=== PATIENT | male | born 1955 | race Caucasian/White ===

== ENCOUNTER 2023-10-11 08:32 | Outpatient (CLI) | payer MEDICARE, OTHER, SELFPAY ==
--- NOTE | 2023-10-11 09:00 | CRLHL7_ITS ---
For Patients: As a result of the 21st Century Cures Act, medical imaging exams and procedure reports are released immediately into your electronic medical record. You may view this report before your referring provider. If you have questions, please contact your health care provider. INDICATION: Pulmonary nodule. Follow up. TECHNIQUE: Volumetric helical scanning of the thorax was performed without IV contrast material. Coronal and sagittal reconstructions were obtained. COMPARISON: Chest/abdomen/pelvis CT of 07/10/2023 FINDINGS: On image 13 series 3, of the 9 x 6 mm nodular density is demonstrated in the right apex and is unchanged. An unchanged noncalcified 5 mm right apical nodule on image 14 is also noted. No new nodule is identified. A few tiny calcified granulomas are again demonstrated. Emphysema is again demonstrated. No acute infiltrate, airway abnormality or pleural effusion is demonstrated. There is no mediastinal or hilar lymphadenopathy. The heart size is normal. Calcified coronary arterial plaque is again demonstrated. Images of the upper abdomen are unremarkable. IMPRESSION: 1. 9 x 6 mm nodular density and noncalcified 5 mm in the right upper lobe apex, unchanged for 3 months. No new nodule evident. A six-month follow up exam is suggested. 2. Emphysema. 3. Coronary artery disease. [employer] SOCIETY GUIDELINES: LOW RISK: - nodule less than 6 mm: No follow-up needed. - nodule 6-8 mm: Initial follow-up CT at 6-12 months and then at 18-24 months if no change. - nodule greater than 8 mm: Follow-up CTs at around 3, 9, and 24 months. Dynamic contrast-enhanced CT, PET, and/or biopsy. MULTIPLE LOW RISK: - nodule less than 6 mm: No follow-up needed. - nodule 6-8 mm: CT at 3-6 months, then consider CT at 18-24 months. - nodule greater than 8 mm: CT at 3-6 months, then consider CT at 18-24 months. HIGH RISK: - nodule less than 6 mm: Follow-up at 12 months. If no change, no further imaging needed. - nodule 6-8 mm: Initial follow-up CT at 3-6 months and then at 9-12 and 24 months if no change. - nodule greater than 8 mm: Follow-up CTs at around 3, 9, and 24 months. Dynamic contrast-enhanced CT, PET, and/or biopsy. MULTIPLE HIGH RISK: - nodule less than 6 mm: Optional CT at 12 months. - nodule 6-8 mm: CT at 3-6 months, then at 18-24 months. - nodule greater than 8 mm: CT at 3-6 months, then at 18-24 months. HIGH RISK is defined as one or more of the following: - at least 20 pack-year smoking history or equivalent second-hand exposure. - personal history of cancer or family history of lung cancer. - occupational exposure (asbestos, beryllium, silica, uranium, radon) - chronic interstitial/fibrotic lung disease. Please note that all CT scans at this facility use dose modulation, iterative reconstruction, and/or weight-based dosing when appropriate to reduce radiation dose to as low as reasonably achievable. Dictated by Kiet Carcamo MD @ 10/14/2023 10:10:43 AM (Electronically Signed)
== END 2023-10-11 08:33 | disposition home or self-care (01) ==
LOC: CT 08:35
PROVIDERS: PCP Physician Assistant; Visit Provider Internal Medicine Pulmonary Disease
DX: R91.1 Solitary pulmonary nodule (principal); R91.8 Other nonspecific abnormal finding of lung field; Z87.891 Personal history of nicotine dependence
CPT/HCPCS: 71250

== ENCOUNTER 2023-12-23 06:56 | Outpatient (CLI) | payer MEDICARE, SELFPAY ==
--- NOTE | 2023-12-23 08:31 | W.ANESCHARGE ---
Anesthesia Charges Start Date/Time Anesthesia Start Date: 12/23/23 Anesthesia Start Time: 07:53 Stop Date/Time Anesthesia Stop Date: 12/23/23 Anesthesia Stop Time: 08:25
--- NOTE | 2023-12-23 08:35 | W.ANESCHARGE ---
Anesthesia Charges Start Date/Time Anesthesia Start Date: 12/23/23 Anesthesia Start Time: 07:53 Stop Date/Time Anesthesia Stop Date: 12/23/23 Anesthesia Stop Time: 08:25
== END 2023-12-23 06:57 | disposition home or self-care (01) ==
LOC: OP CLINIC 06:57
PROVIDERS: PCP Physician Assistant; Visit Provider Internal Medicine Gastroenterology
DX: K63.5 Polyp of colon (principal); K57.30 Diverticulosis of large intestine without perforation or abscess without bleeding; Z86.010 Personal history of colon polyps
CPT/HCPCS: 00811; 45380; 88305; J2704

== ENCOUNTER 2024-04-15 07:44 | Outpatient (CLI) | payer MEDICARE, OTHER, SELFPAY ==
--- NOTE | 2024-04-15 08:00 | CRLHL7_ITS ---
For Patients: As a result of the Century Cures Act, medical imaging exams and procedure reports are released immediately into your electronic medical record. You may view this report before your referring provider. If you have questions, please contact your health care provider. Indication: F/U PULMONARY NODULE Technique: Noncontrast CT chest Please note that all CT scans at this facility use dose modulation, iterative reconstruction, and/or weight-based dosing when appropriate to reduce radiation dose to as low as reasonably achievable. Comparison: 10/11/2023 Findings: Stable 9 millimeter nodule within the right lung apex. Unchanged adjacent right apical pleural-parenchymal scarring. Left apical pleural parenchymal scarring also noted. Development of numerous additional nodules in both upper lobes within the subpleural lung, joyfu-muxqnlg-ndxw-left, measuring 5 millimeters or less. COPD/emphysema. No effusion or infiltrate. No edema or pneumothorax. Stable subcentimeter intrathoracic lymph nodes. Vascular calcifications. Asymmetric left gynecomastia. Visualized upper abdomen unremarkable. Stable bone island within the upper thoracic spine. Impression: Stable 9 millimeter right upper lobe nodule in the right lung apex. Stable 5 millimeter nodule right upper lobe. Additional new bilateral upper lobe nodules measuring 5 millimeters or less. Continued follow-up CT chest in 6 months recommended. Please note that all CT scans at this facility use dose modulation, iterative reconstruction, and/or weight-based dosing when appropriate to reduce radiation dose to as low as reasonably achievable. Dictated by Cliff Tai MD @ 04/16/2024 9:41:28 AM (Electronically Signed)
== END 2024-04-15 07:45 | disposition home or self-care (01) ==
LOC: CT 07:45
PROVIDERS: PCP Physician Assistant; Visit Provider Internal Medicine Pulmonary Disease
DX: R91.1 Solitary pulmonary nodule (principal); R91.8 Other nonspecific abnormal finding of lung field
CPT/HCPCS: 71250

== ENCOUNTER 2024-10-30 04:23 | Outpatient (CLI) | payer MEDICARE, SELFPAY | END 2024-10-30 04:24 | disposition home or self-care (01) | LOC: AMB 11-11 09:10 | PROVIDERS: PCP Physician Assistant; Visit Provider Emergency Medicine Emergency Medical Services | DX: R06.09 Other forms of dyspnea (principal) | CPT/HCPCS: A0998 ==

== ENCOUNTER 2025-09-21 10:38 | Emergency (ER) | payer MEDICARE, OTHER, SELFPAY ==
--- OUTSIDE RECORDS SUMMARY | 2025-09-21 10:58 | XMS_ITS | Clinical Summary ---
Author Organization [facility] Address [address] [place] [id number] Care Team Providers Care It Auditor Name Role Phone Tim Brown MD Primary Care Provider [phone] Allergies Active AllergyReactionsCriticalityNoted DateCommentsPenicillinsShortness Of CgszqpFyfq18/05/2018 Hives Medications MedicationSigDispense QuantityRefillsLast FilledStart DateEnd DateStatus order for DME Indications:Status post revision of total replacement of right kneeEquipment being ordered: Walker Wheels ([id number]) and Walker ([id number]) Treatment Diagnosis: Impaired gait. 1 each 06/06/2018Active oxyCODONE IR (ROXICODONE) 5 MG tablet Indications:Status post revision of total replacement of right kneeTake 1 tablet (5 mg) by mouth every 4 hours as needed for moderate to severe pain 80 tablet 06/07/2018Active acetaminophen (TYLENOL) 325 MG tablet Indications:Status post revision of total replacement of right kneeTake 3 tablets (975 mg) by mouth 3 times daily 100 tablet 06/07/2018Active hydrOXYzine (ATARAX) 25 MG tablet Indications:Status post revision of total replacement of right kneeTake 1 tablet (25 mg) by mouth every 6 hours as needed for itching 40 tablet 06/07/2018Active rivaroxaban ANTICOAGULANT (XARELTO) 10 MG TABS tablet Indications:Status post revision of total replacement of right kneeTake 1 tablet (10 mg) by mouth daily 14 tablet 06/08/2018Active senna-docusate (SENOKOT-S;PERICOLACE) 8.6-50 MG per tablet Indications:Status post revision of total replacement of right kneeTake 1 tablet by mouth 2 times daily 50 tablet 06/07/2018Active Active Problems ProblemNoted DateDiagnosed DateFailed total right knee oqirzyuaoyq65/06/2018 Total knee replacement pzqmxd4307/23/2008Knee pain07/23/2008 Social History Tobacco UseTypesPacks/DayYears UsedDateSmoking Tobacco: Every TotMtgofccaec781 Smokeless Tobacco: NeverAlcohol UseStandard Drinks/WeekCommentsYes0 (1 standard drink = 0.6 oz pure alcohol)rareSex and Gender InformationValueDate RecordedSex Assigned at BirthNot on fileLegal HmoKtzk23/04/2012 3:18 AM CSTGender Identity Not on fileSexual OrientationNot on file Last Filed Vital Signs Vital SignReadingTime TakenCommentsBlood Aqptgcik947/8509 10:04 AM CDT Pbzib961206/07/2018 7:46 PM YEPJoqauvcobqd95.8 ??C (98.3 ??F)06/08/2018 10:04 AM CDTRespiratory Fkbj400606/08/2018 10:04 AM CDTOxygen Lnxcynlefv61%06/08/2018 10:04 AM CDTInhaled Oxygen Concentration--Tmcbfg14.7 kg (208 lb 11.2 oz)06/07/2018 6:13 AM YSPQulyco548.4 cm (6' 1)06/05/2018 10:50 AM CDTBody Mass Index27.53 06/05/2018 10:50 AM CDT Plan of Treatment Not on file Medical Devices ImplantedTypeAreaManufacturerDevice IdentifierShelf Expiration DateModel / Serial / LotGraft Bone Putty Dbx 01ml [id number] Implanted:Qty: 1 [facility] 06/05/2018 [facility]issue/BiologicRight: KneeMUSCULOSKELETAL TRAN08/18/2019 [id number] / [id number] / Bone Cement Radiopaque Simplex Hv Full Dose [id number] Implanted:Qty: 1 on 06/05/2018 [facility] CenterCement, BoneRight: KneeSTRYKER QOVRQOMIYPH53/31/[id number] / / [id number] Tibial Insert Rotating Platform Tc3 Size 4 22.5mm Implanted:Qty: 1 on 06/05/2018 [facility]: WtkdFqmco85/30/[id number] / / [id number].B.T. Revision Tibial Tray Rotating Platform Sz 4 Implanted:Qty: 1 on 06/05/2018 [facility]: WldpIhnwi03/31/[id number] / / [id number].B.T. Revision Metaphyseal Sleeve 45mm Implanted:Qty: 1 on 06/05/2018 [facility]: EbupHzpja08/31/[id number] / / [id number] Stem Fluted 75mm X 18mm (Tibia) Implanted:Qty: 1 on 06/05/2018 [facility]: ZukmMnphj67/30/[id number] / / [id number] Femoral Tc3 Cemented Size 4 Right Implanted:Qty: 1 on 06/05/2018 [facility]: PaniDhajw98/31/[id number] / / [id number].F.C. Sigma Femoral Adaptor 5 Degree Implanted:Qty: 1 on 06/05/2018 by [facility]: IgjwFzqrl10/31/[id number] / / [id number].F.C. Sigma Femoral Adapter Marcy Neutral Implanted:Qty: 1 on 06/05/2018 by [facility]: GxklIsweg15/30/[id number] / / [id number] Femoral Sleeve 40mm Implanted:Qty: 1 on 06/05/2018 by [facility]: MrzmEfljv87/31/[id number] / / [id number] Stem Fluted 75mm X 20mm (Femoral) Implanted:Qty: 1 on 06/05/2018 [facility]: VfitPrxcg58/31/[id number] / / [id number]cybli IdentifierShelf Expiration DateModel / Serial / LotTotal Knee Explants (Femoral Component, Tibial Component, Tibial Insert) Explanted:Qty: 3 on 06/05/2018 by [facility] CenterRight: Knee Insurance * Guarantor: Eric Gaona Jr.Account TypeRelation to PatientDate of BirthPhoneBilling AddressPersonal/JfteglVaop1955 [address] [place] [address] * Guarantor: [id number] ENGINEERSAccount TypeRelation to PatientDate of BirthPhoneBilling AddressWorker's PjadcugrnbyeEmxjwzjz[address] [place] [address] Advance Directives For more information, please contact: [phone] * Full Code (Latest Code Status on File) Date ActivatedDate InactivatedComments06/07/2018 11:07 AM * Full Code Date ActivatedDate InactivatedComments06/05/2018 7:24 PM06/07/2018 11:07 AM Care Teams Team MemberRelationshipSpecialtyStart DateEnd Date Tim Brown MD PCP - GeneralFamily Practice06/05/18
--- OUTSIDE RECORDS SUMMARY | 2025-09-21 10:58 | XMS_ITS | Clinical Summary ---
Author Organization [facility] Address [facility] [place] [address] Care Team Providers Care Payroll Accounting Clerk Name Role Phone Rubina Laughlin Primary Care Provider [phone] Allergies Active AllergyReactionsCriticalityNoted RevtXvkvlwhuXwlxxosdtueBtkbd11/20/2010 Short of breath Medications MedicationSigDispense QuantityRefillsLast FilledStart DateEnd DateStatus metoprolol tartrate (LOPRESSOR) 25 mg tablet Indications:Atrial flutter, unspecified type (HC)Take 0.5 Tablets (12.5 mg) by mouth each time if needed (palpitations, fast HR). Please call [phone] 2 months in advance to schedule an office visit due in Aug 2024 45 Tablet 5Active aspirin chewable 81 mg chewable tablet Chew 81 mg by mouth once daily with a meal.Active fluticasone (50 mcg per actuation) nasal solution (FLONASE) Inhale 1 [place] into affected nostril(s) once daily if needed for Rhinitis.Active clopidogreL 75 mg tablet Indications:Cardiovascular symptomsTake 1 Tablet (75 mg) by mouth once daily. 90 Tablet 5Active rosuvastatin (Crestor) 20 mg tablet Indications:Mixed hyperlipidemiaTake 1 Tablet (20 mg) by mouth once daily. 90 Tablet 5Active escitalopram oxalate (Lexapro) 10 mg tablet Indications:LINDA (generalized anxiety disorder)Take 1 Tablet (10 mg) by mouth once daily. 90 Tablet 5Active LORazepam (ATIVAN) 0.5 mg tab Indications:Panic disorder,Adjustment disorder with anxious moodTAKE 1 TABLET (0.5 MG) BY MOUTH EVERY 6 HOURS IF NEEDED FOR ANXIETY. 20 Tablet 5Active tiotropium-olodateroL (STIOLTO RESPIMAT) 2.5-2.5 mcg/actuation inhaler Indications:COPD mixed type (HC)Inhale 2 Puffs by mouth once daily. 12 g 5Active albuterol HFA (PRO-AIR; VENTOLIN; PROVENTIL) 90 mcg/actuation inhaler Indications:Centrilobular emphysema (HC)Inhale 2 Puffs by mouth every 4 hours if needed for Shortness Of Breath or Wheezing. 8.5 g 1115Active fluticasone propion-salmeteroL 250-50 mcg/Dose diskus inhaler Indications:COPD mixed type (HC)Inhale 1 Puff by mouth two times daily. 60 Each Discontinued(*Med complete/Regimen complete/Level of care change) albuterol HFA 90 mcg/actuation inhaler Indications:Centrilobular emphysema (HC)Inhale 2 Puffs by mouth every 4 hours if needed for Shortness Of Breath or Wheezing. 8.5 g Discontinued(Reorder (E-cancel not sent)) azithromycin 250 mg tablet Indications:COPD exacerbation (HC)Take 500 mg (2 tabs) by mouth on day 1, then 250 mg (1 tab) daily for days 2-5. 6 Tablet Discontinued(*Med complete/Regimen complete/Level of care change) predniSONE (DELTASONE) 20 mg tablet Indications:COPD exacerbation (HC)Take 2 Tablets (40 mg) by mouth once daily with a meal for 5 days. 10 Tablet /Expired umeclidinium-vilanteroL (ANORO ELLIPTA) 62.5-25 mcg/actuation inhaler Indications:COPD mixed type (HC),Lung nodule,History of tobacco useInhale 1 Puff by mouth once daily. Discard inhaler 6 weeks after opening or when the counter reads '0' (after all blisters have been used), whichever comes first. 180 Each 11/07/2024Discontinued(*Medication adjustment) Active Problems ProblemNoted DateDiagnosed DateCoronary artery disease involving chippewa-cree coronary artery of chippewa-cree heart without angina yhjqkdie74/21/2025Nonrheumatic aortic valve sthppaat34/07/2025OPD mixed type01/04/2025GAD (generalized anxiety disorder)01/04/2025Mixed trikfdofbvnmht17/29/2025Intermittent atrial clsrwbudgxfk88/28/2025Intermittent atrial yoevftw0710/27/2024Gynecomastia 07/04/20233510Iyfrvuhurgb94/05/2023igarette nicotine dependence without jdseludrqypx20/03/2023Weight loss, asvznleeymuqp87/03/2023ure breqhgqvikejgxmzcqpe85/03/2023iverticulosis of large intestine without perforation or abscess without hzifaros57/16/2023olyp of colon10/15/2022 Overview (12/26/2023): Colonoscopy 11/2023 TA, repeat in 5 years Rectal polyp10/15/2022Tobacco use09/18/2022 Overview (07/02/2023): Last Assessment & Plan: Smoking 1/4 ppd. Precontemplative about quit but did discuss importance and health impacts. Qualifies for AAAscreening and ordered today. Also discussed LDCT for lung cancer screening but he declines at this time. Failed total right knee qjlggfhwwif89/06/2018Total knee replacement status 07/23/2008 Resolved Problems ProblemNoted DateDiagnosed DateResolved DateAtrial tjxdtqa05/08/2024 Encounters DateTypeDepartmentCare CgisWqdovetegyf11/23/2025Nurse Triage [facility] [address] [place] [address] Rubina Laughlin PA Breathing Wxfvxoc6609/06/2025Telephone [facility] [address] [place] [address] Cliff Singh MD Medication Management (umeclidinium-vilanteroL )09/06/2025Results Follow-Up [facility] [address] [facility] [address] [place] [address] Cliff Singh MD 09/03/2025 1:45 PM DIRECTOR RADIO NEWS - 09/03/2025 11:[address] [facility] [address] [place] [address] Cliff Singh MD COPD mixed type (HC); Lung nodule; History of tobacco use09/03/20256870Auhzbu16/02/2025 8:30 AM CSTOffice Visit [facility] [address] [facility] [address] [place] [address] Cliff Singh MD Follow Up (Emphysema )08/31/20259529Yyriwi39/27/7884Vlxevb13/24/2025 3:10 PM DIRECTOR RADIO NEWS Office Visit [facility] [address] [place] [address] Rubina Laughlin PA URI (Has had a cold for 9 days-better in the mornings now but by mid afternoon sx kick in-a lot of congestion, bedtime is hard, using nyquil and dayquil-coughs all the time and is SOB)08/22/20258596Xkuswn04/28/2025 9:45 AM CDTOffice Visit [facility] [address] [facility] [address] [place] [address] Eva Torres PA Follow Up (3 month follow up//-Pt states he has been having episodes of excessive sweating while sitting about once every couple of weeks- states he takes lorazapem and it goes away/-Pt reports decreased energy levels)07/27/2025 Ywgaok3807/24/2025Refill [facility] [address] [place] [address] Rubina Laughlin PA Refill Request (Lorazepam, Ergocalciferol)07/22/20253623Ckzjub11/ 9:00 AM CDT Orders Only [facility] [address] [place] [address] [address] Lab, [facility]07/19/20255911Vdtjsb44/17/2025 8:50 AM CDTOffice Visit [facility] [address] [place] [address] [address] Rubina Laughlin PA Weight (Unable to gain weight); Derm Problem (Wart on left foot)07/16/2025Travel 07/11/2025Travelfrom Last 3 Months Immunizations ImmunizationAdministration DatesNext DueCOVID-19 vaccine (Moderna Booster 50mcg/0.25mL) PF, MDV10/11/2024OVID-19 vaccine (Pfizer-BioNTech 30mcg/0.3mL) PF, MDV1Influenza Virus, Uxgsyvqlevz01/01/2023Influenza, High-dose Bttnwqyheeo16/12/1106Bxmm14/31/2016 Family History Medical HistoryRelationNameCommentsUnknownBrotherGood HealthDaughter 1Good HealthDaughter 2UnknownHalf-Sister 1UnknownHalf-Sister 2StrokeMotherGood Health SonCancer-breastNo Family HistoryCancer-ovarianNo Family HistoryRelationName StatusCommentsBrotherAliveDaughter 1AliveDaughter 2AliveFatherDeceasedHalf- Sister 1AliveHalf-Sister 2AliveMotherDeceasedSisterDeceasedSonAlive Social History Tobacco UseTypesPacks/DayYears UsedDateSmoking Tobacco: Every DayCigarettes0.557 Started: 1968Smokeless Tobacco: Never Tobacco Cessation:Ready to Q uit: Not Asked; Counseling Given: Not Answered Alcohol UseStandard Drinks/WeekCommentsYes0 (1 standard drink = 0.6 oz pure alcohol)1 drink every few months or lessPHQ-2AnswerDate RecordedPHQ-2 TOTAL FSJXM84610/27/2024Social ConnectionsAnswerDate RecordedDo you often feel lonely or isolated from those around you?lcohol UseAnswerDate RecordedHow often do you have a drink containing alcohol?verage Number of Drinks Not on file07/16/2025Frequency of Binge DrinkingNot on file07/16/2025Financial Resource StrainAnswerDate RecordedDifficulty of Paying Living Expenses2 10/22/2024Difficulty of Paying Living Pueldbch642/23/2025Food InsecurityAnswer Date RecordedDo you worry your food will run out before you are able to buy more?Transportation NeedsAnswerDate RecordedDoes lack of transportation keep you from medical appointments?Does lack of transportation keep you from work, meetings or getting things that you need?1 10/22/2024Housing StabilityAnswerDate RecordedWhat is your housing situation today?Interpersonal SafetyAnswerDate RecordedAre you being hit, kicked, pushed or yelled at (see row info)?No03/02/2025Interpersonal Safety Abuse 12 - 18Not on file03/02/2025Interpersonal Safety Ambulatory Vulnerability Not on file03/02/2025UtilitiesAnswerDate RecordedDo you have trouble paying for utilities (for example, heat, electricity, water, phone)?Sex and Gender InformationValueDate RecordedSex Assigned at BirthNot on fileLegal Sex Male10/13/2012 5:47 AM CSTGender IdentityNot on fileSexual OrientationNot on file Last Filed Vital Signs Vital SignReadingTime TakenCommentsBlood Pcbmnumm028/80111/01/2024 8:34 AM DIRECTOR RADIO NEWS Ygpuq086508/31/2025 8:34 AM VPUTuxgzbnpony83.9 ??C (98.4 ??F)08/23/2025 3:01 PM CSTRespiratory Kehp241611/01/2024 8:34 AM CSTOxygen Wrnmtgbwof74%08/31/2025 8:34 AM CSTInhaled Oxygen Concentration--Fehhhe99 kg (183 lb)08/31/2025 8:34 AM DIRECTOR RADIO NEWS Merjtb061.4 cm (6' 1)08/31/2025 8:34 AM CSTBody Mass Index24.14111/01/2024 8:34 AM DIRECTOR RADIO NEWS Plan of Treatment Health MaintenanceDue DateLast DoneCommentsPneumococcal series for age 50+ (1 of 2 - PCV)1975RSV vaccine for adults or (1 - Risk 50-74 years 1- dose series)2006Zoster (shingles) series for age 50+ (1 of 2)2006Low Dose CT (for lung CA) age 50-800, 07/10/2023Influenza Vaccine (#1)5010/11/2024, 06/30/2023Medicare Wellness for age 65+10/28/2025 10/27/2024, 10/07/2023epression screening for age 12+, 10/27/2024, 10/07/2023, Additional history existsCOVID-19 vaccine series (2024- season)/12/2024, 10/11/2024, 06/30/2023, Additional history existsBMI (ht and wt on same day) for age 18+/10/2024, 07/27/2025, 04/19/2025, Additional history existsTetanus / Colonoscopy through age 7503//705170/, 12/23/2023, 12/23/2023, Additional history existsLipids for age 45-, 02/24/2025, 10/27/2024, Additional history existsHepatitis C screening for age 18-79 Mxpcaznce92/20/2022 ([facility]AAA screening age 65-74 Kkdagcgln64/11/2023Hepatitis B series for 19+Aged OutNo longer eligible based on patient's age to complete this topic Procedures Procedure NamePriorityDate/TimeAssociated DiagnosisCommentsCOMPLETE PULMONARY FUNCTION TEST WITH RWWSMQJWZGCTPILejurcm22/05/2025 2:00 PM DIRECTOR RADIO NEWS COPD mixed type (HC) Lung nodule History of tobacco use METANEPHRINES FRAC QN 24 HR VAIXLWwuvnma28/20/2025 8:54 AM CDT Unintentional weight loss CBC WITH AUTO MBWJUOBAHDPKRyfdaff90/17/2025 9:38 AM CDT Unintentional weight loss HEMOGLOBIN G2DPklwess93/17/2025 9:38 AM CDT Hyperglycemia CBC WITH AUTO YSDZTPVPPRKKAongwyq79/17/2025 9:38 AM CDT Unintentional weight loss ANTINUCLEAR ANTIBODY BY MMBEttvuyf31/17/2025 9:38 AM CDT Unintentional weight loss C-REACTIVE KRQOKKECcqhphf47/17/2025 9:38 AM CDT Unintentional weight loss COMP METABOLIC VAKYSIfpmrvc19/17/2025 9:38 AM CDT Unintentional weight loss T4,XYWLBqlljrr21/17/2025 9:38 AM CDT Unintentional weight loss GVLSqtdayp79/17/2025 9:38 AM CDT Unintentional weight loss LIPID PANELEarly AM03/03/2025 6:[address] CHEST RECdkosff68/17/2024 12:00 AM CDT Lung nodule seen on imaging study COLONOSCOPY RFGGPCSXVLqzebzj20/25/2024 8:00 AM CDT History of colon polyps Polyp of colon, unspecified part of colon, unspecified type CT CHEST ABDOMEN PELVIS YEqnkftp81/11/2023 9:16 AM CDT Weight loss, unintentional Cigarette nicotine dependence without complication from Last 3 Months or Most Recently Relevant to Health Maintenance Results * COMPLETE PULMONARY FUNCTION TEST WITH BRONCHODILATOR (09/03/2025 2:00 PM DIRECTOR RADIO NEWS) Narrative [facility] - 09/03/2025 2:00 PM DIRECTOR RADIO NEWS Cliff Singh MD 09/06/2025 8:06 AM Complete Pulmonary Function Test Date of study: 09/04/2025 CONCLUSION: Moderate obstruction. Positive albuterol response. The elevated RV/TLC ratio indicates hyperinflation. The DLCOc is mildly reduced. ??The DL/VA is reduced. ??The presence of a reduced diffusing capacity that does not normalize when corrected by lung volume suggests a parenchymal or pulmonary vascular disorder. ___ Spirometry: FVC is 2.78 liters, 58 % of predicted. FEV1 is 1.22 liters, 34 % of predicted. FEV1/FVC is 44 Bronchodilator Response: FVC % predicted changes by 24 % which is a significant improvement by ATS criteria Lung Volumes: TLC is 8.23 liters, 104 % of predicted. RV is 5.14 liters, ??185 % of predicted. Diffusion Capacity: DLCOcor is 18.22 units, 64 % of predicted. DL/VA is 2.75 units, 69 % of predicted. Flow Volume Loop: Inspiratory flow volume curve is normal. Expiratory flow volume curve suggests obstruction. 2020 ATS/ERS Guidelines Severity Z-score Normal > -1.65 Mild -1.65 to -2.5 Moderate -2.51 to -4 Severe < -4 Bronchodilator Response: > 10% increase in percent predicted value of FEV1 or FVC. Cliff Singh MD .................... ??09/06/2025 ?? 8:04 AM Authorizing ProviderResult TypeResult StatusDavid Esa Singh MDPFT ORD Final ResultPerforming OrganizationAddressCity/State/ZIP CodePhone Number [facility] [place], [place] * METANEPHRINES FRAC QN 24 HR URINE (07/19/2025 8:54 AM CDT)ComponentValueRef RangeTest MethodAnalysis TimePerformed AtPathologist SignatureNormetaneph Ur 230Undefined ug/L1 9:08 AM CDALTR[facility] ([facility])Normetaneph 24h Pp036736 - 729 ug/24 hr07/26/2025 9:08 AM [facility])Metaneph Ur58 Undefined ug/L1 9:08 AM [facility] ([facility])Metaneph 24h Yf1589 - 276 ug/24 hr07/26/2025 9:08 AM [facility] ([facility])Specimen (Source)Anatomical Location / LateralityCollection Method / VolumeCollection TimeReceived Time UrineURINE SPECIMEN / UnknownNon-Blood / Pswxpqe0907/19/2025 8:54 AM CDT 07/19/2025 8:55 AM CDT Narrative [facility] ([facility]) - 07/26/2025 9:08 AM CDT Test(s) 391171-Eowruphawbmtdnb, Ur; 792466-Aecguwgkpagq, Ur was developed and its performance characteristics determined by [facility]. It has not been cleared or approved by the Food and Drug Administration. Performed at: ??[address] ??[id number] Digital Media Coordinator: Phong Ramirez MD, Phone: ??[phone] Authorizing ProviderResult TypeResult StatusJennmelissa Barlow Truman PAURINEFinal ResultPerforming OrganizationAddressCity/State/ZIP CodePhone Number [facility] (CET) [address] [place] [id number], * ANTINUCLEAR ANTIBODY BY IFA (07/16/2025 9:38 AM CDT)ComponentValueRef Range Test MethodAnalysis TimePerformed AtPathologist SignatureANA SCREEN, IFA FDLUUCWPNTTPKWBN19/18/2025 6:55 PM CDTQUEST DIAGNOSTICSComment: GREG IFA is a first line screen for detecting the presence of up to approximately 150 autoantibodies in various autoimmune diseases. A negative GREG IFA result suggests an GREG-associated autoimmune disease is not present at this time, but is not definitive. If there is high clinical suspicion for Sjogren's syndrome, testing for anti-SS-A/Ro antibody should be considered. Anti-Jeaneth-1 antibody should be considered for clinically suspected inflammatory myopathies. AC-0: Negative International Consensus on GREG Patterns (https://doi.org/10.1515/izic-7782-6087) For additional information, please refer to http://education.Service Seeking/faq/KIC658 (This link is being provided for informational/ educational purposes only.) ?? Specimen (Source)Anatomical Location / LateralityCollection Method / Volume Collection TimeReceived TimeBloodBLOOD SPECIMEN / UnknownQuest Collect / Unknown 07/16/2025 9:38 AM CDT1 9:38 AM CDT Narrative Authorizing ProviderResult TypeResult StatusJennmelissa Yenadama Laughlin PACHEMISTRYFinal ResultPerforming OrganizationAddressCity/State/ZIP CodePhone Number [place] [employer] [facility] [address] [phone], * CBC WITH AUTO DIFFERENTIAL (07/16/2025 9:38 AM CDT)ComponentValueRef RangeTest MethodAnalysis TimePerformed AtPathologist SignatureWHITE BLOOD CELL COUNT7.4 3.8 - 10.8 Thousand/uL07/17/2025 4:03 AM CDTQUEST DIAGNOSTICSRED BLOOD CELL COUNT5.064.20 - 5.80 Million/uL07/17/2025 4:03 AM CDT[facility] QAXSAKNQKB99.213.2 - 17.1 g/dL07/17/2025 4:03 AM CDT[facility] EILATQJVIQ90.638.5 - 50.0 %07/17/2025 4:03 AM CDTQUEST YAASAZLZPXVPAH22.180.0 - 100.0 fL07/17/2025 4:03 AM CDTQUEST JYWGTSQELTDDLX89.027.0 - 33.0 pg 07/17/2025 4:03 AM CDTQUEST SNXRPYLEJNWXWFS79.632.0 - 36.0 g/dL07/17/2025 4:03 AM CDTQUEST DIAGNOSTICSComment: For adults, a slight decrease in the calculated MCHC value (in the range of 30 to 32 g/dL) is most likely not clinically significant; however, it should be interpreted with caution in correlation with other red cell parameters and the patient's clinical condition. RDW12.811.0 - 15.0 %07/17/2025 4:03 AM CDTQUEST DIAGNOSTICSPLATELET UWEND835062 - 400 Thousand/uL07/17/2025 4:03 AM CDTQUEST ANCWTAFJVIGTDC62.17.5 - 12.5 fL 07/17/2025 4:03 AM CDTQUEST GCVBHYGROTZCNRJWPPKBCY69.5%07/17/2025 4:03 AM CDT [facility] OXDQNFIUWKWAKEOHMSZNQN74.5%07/17/2025 4:03 AM CDT[facility] MONOCYTES9.8%07/17/2025 4:03 AM CDTQUEST DIAGNOSTICSEOSINOPHILS3.0%07/17/2025 4:03 AM CDTQUEST DIAGNOSTICSBASOPHILS1.2%07/17/2025 4:03 AM CDT[facility] ABSOLUTE IWYNMQDGTKM36921816 - 7800 cells/uL07/17/2025 4:03 AM CDTQUEST DIAGNOSTICSABSOLUTE VPNGDOUNXFG7976067 - 3900 cells/uL07/17/2025 4:03 AM CDT [facility]AGNOSTICSABSOLUTE RKFBJOAPH418927 - 950 cells/uL07/17/2025 4:03 AM CDT [facility]AGNOSTICSABSOLUTE KCGBHEBMPZV53819 - 500 cells/uL07/17/2025 4:03 AM CDT [facility]AGNOSTICSABSOLUTE LACMIXBER254 - 200 cells/uL07/17/2025 4:03 AM CDTQUEST DIAGNOSTICSSpecimen (Source)Anatomical Location / LateralityCollection Method / VolumeCollection TimeReceived TimeBloodBLOOD SPECIMEN / UnknownQuest Collect / Pltvjqc6507/16/2025 9:38 AM CDT1 9:38 AM CDT Narrative Authorizing ProviderResult TypeResult StatusJennmelissa Laughlin PAHEMATOLOGYFinal ResultPerforming OrganizationAddressCity/State/ZIP CodePhone Number [facility] [address] [place] [address], * (ABNORMAL) HEMOGLOBIN A1C (07/16/2025 9:38 AM CDT)ComponentValueRef RangeTest MethodAnalysis TimePerformed AtPathologist SignatureHEMOGLOBIN A1C5.9(H)<5.7 % 07/17/2025 4:42 AM CDTQUEST DIAGNOSTICSComment: For someone without known diabetes, a hemoglobin A1c value between 5.7% and 6.4% is consistent with prediabetes and should be confirmed with a follow-up test. For someone with known diabetes, a value <7% indicates that their diabetes is well controlled. A1c targets should be individualized based on duration of diabetes, age, comorbid conditions, and other considerations. This assay result is consistent with an increased risk of diabetes. Currently, no consensus exists regarding use of hemoglobin A1c for diagnosis of diabetes for children. Specimen (Source)Anatomical Location / LateralityCollection Method / Volume Collection TimeReceived TimeBloodBLOOD SPECIMEN / UnknownQuest Collect / Unknown 07/16/2025 9:38 AM CDT1 9:38 AM CDT Narrative Authorizing ProviderResult TypeResult StatusRubina Laughlin PACHEMISTRYFinal ResultPerforming OrganizationAddressCity/State/ZIP CodePhone Number [place] [employer] [facility] [address] [address], * TSH (07/16/2025 9:38 AM CDT)ComponentValueRef RangeTest MethodAnalysis Time Performed AtPathologist SignatureTSH1.110.40 - 4.50 mIU/L1 6:49 AM CDTQUEST DIAGNOSTICSSpecimen (Source)Anatomical Location / Laterality Collection Method / VolumeCollection TimeReceived TimeBloodBLOOD SPECIMEN / UnknownQuest Collect / Kcvmqeb8207/16/2025 9:38 AM CDT1 9:38 AM CDT Narrative Authorizing ProviderResult TypeResult StatusRubina Laughlin PACHEMISTRYFinal ResultPerforming OrganizationAddressCity/State/ZIP CodePhone Number [place] [facility] [facility] [address] [phone], * C-REACTIVE PROTEIN (07/16/2025 9:38 AM CDT)ComponentValueRef RangeTest Method Analysis TimePerformed AtPathologist SignatureC-REACTIVE PROTEIN (MG/L)<3.0 <8.0 mg/L1 12:35 PM CDTQUEST DIAGNOSTICSSpecimen (Source)Anatomical Location / LateralityCollection Method / VolumeCollection TimeReceived Time BloodBLOOD SPECIMEN / UnknownQuest Collect / Qdzpwgs4207/16/2025 9:38 AM CDT 07/16/2025 9:38 AM CDT Narrative Authorizing ProviderResult TypeResult StatusRubina Laughlin PACHEMISTRYFinal ResultPerforming OrganizationAddressty/[facility]/ZIP CodePhone Number [place] [employer] [address] [address], * T4,FREE (07/16/2025 9:38 AM CDT)ComponentValueRef RangeTest MethodAnalysis TimePerformed AtPathologist SignatureT4, FREE1.20.8 - 1.8 ng/dL07/17/2025 6:49 AM CDTQUEST DIAGNOSTICSSpecimen (Source)Anatomical Location / Laterality Collection Method / VolumeCollection TimeReceived TimeBloodBLOOD SPECIMEN / UnknownQuest Collect / Tourfbu9307/16/2025 9:38 AM CDT1 9:38 AM CDT Narrative Authorizing ProviderResult TypeResult StatusRubina Laughlin PACHEMISTRYFinal ResultPerforming OrganizationAddressty/State/ZIP CodePhone Number [place] [employer] [facility] [address] [address], * (ABNORMAL) COMP METABOLIC PANEL (07/16/2025 9:38 AM CDT)ComponentValueRef RangeTest MethodAnalysis TimePerformed AtPathologist IythozzjfPVXRXP704717 - 146 mmol/L1 4:59 AM CDTQUEST DIAGNOSTICSPOTASSIUM4.43.5 - 5.3 mmol/L 07/17/2025 4:59 AM CDTQUEST ZTZZUJCTYNRHNRLNDHC65650 - 110 mmol/L1 4:59 AM CDTQUEST DIAGNOSTICSCARBON DFBNKHJ8162 - 32 mmol/L1 4:59 AM CDTQUEST ETPKASJFBGFBUXEQWU5713 - 99 mg/dL07/17/2025 4:59 AM CDTQUEST DIAGNOSTICSComment: ? Fasting reference interval CALCIUM9.08.6 - 10.3 mg/dL07/17/2025 4:59 AM CDTQUEST DIAGNOSTICSCREATININE0.65 (L)0.70 - 1.35 mg/dL07/17/2025 4:59 AM CDTQUEST DIAGNOSTICSBUN/CREATININE RATIO 186 - 22 (calc)07/17/2025 4:59 AM CDTQUEST DZNRLPEFEPFOZUW503> OR = 60 mL/min/1.04r25807/17/2025 4:59 AM CDTQUEST DIAGNOSTICSALBUMIN4.23.6 - 5.1 g/dL 07/17/2025 4:59 AM CDTQUEST DIAGNOSTICSPROTEIN, TOTAL6.46.1 - 8.1 g/dL07/17/2025 4:59 AM CDTQUEST DIAGNOSTICSBILIRUBIN, TOTAL0.60.2 - 1.2 mg/dL07/17/2025 4:59 AM CDTQUEST DIAGNOSTICSALKALINE VDCYGFMYEVY4879 - 144 U/L1 4:59 AM CDT [facility] HOGATOEWRNSKOT791 - 46 U/L1 4:59 AM CDTQUEST EFADEWVTJVHJEN5852 - 35 U/L1 4:59 AM CDTQUEST DIAGNOSTICSUREA NITROGEN (BUN)127 - 25 mg/dL 07/17/2025 4:59 AM CDTQUEST DIAGNOSTICSGLOBULIN2.21.9 - 3.7 g/dL (calc) 07/17/2025 4:59 AM CDTQUEST DIAGNOSTICSALBUMIN/GLOBULIN RATIO1.91.0 - 2.5 (calc) 07/17/2025 4:59 AM CDTQUEST DIAGNOSTICSSpecimen (Source)Anatomical Location / LateralityCollection Method / VolumeCollection TimeReceived TimeBloodBLOOD SPECIMEN / UnknownQuest Collect / Eeofeqi5807/16/2025 9:38 AM CDT1 9:38 AM CDT Narrative Authorizing ProviderResult TypeResult StatusJennmelissa Laughlin PACHEMISTRYFinal ResultPerforming OrganizationAddressCity/State/ZIP CodePhone Number [facility] [place] [address], * Lipid Panel (03/03/2025 6:01 AM CDT)ComponentValueRef RangeTest MethodAnalysis TimePerformed AtPathologist SignatureCHOLESTEROL,EHWYO186625 - 199 mg/dL 03/03/2025 7:30 AM [facility]AL LABORATORYComment: Cholesterol, Total Reference Ranges Desirable <200 mg/dL Borderline 200-239 mg/dL High >=240 mg/dL QYNRWDNNPCDWH61<150 mg/dL03/03/2025 7:30 AM [facility]-CENTRAL LABORATORYHDL FRUUJXDMBMX71>40 mg/dL03/03/2025 7:30 AM [facility]-CENTRAL LABORATORYNON-HDL VIXSVMXPYXT987<145 mg/dl03/03/2025 7:30 AM [facility]-CENTRAL LABORATORYCHOL/HDL RATIO4.16<4.50003/03/2025 7:30 AM [facility]-CENTRAL LABORATORYLDL XGXSFKHXUEE623<=130 mg/dL03/03/2025 7:30 AM [facility]ITALC[facility]TRAL LABORATORYVLDL PRTKIPABTIH50<=30 mg/dL03/03/2025 7:30 AM [facility]AL LABORATORYPROVIDER ORDERED EPXVAHUNVILZ98/04/2025 7:30 AM [facility]-CENTRAL LABORATORYSpecimen (Source)Anatomical Location / Laterality Collection Method / VolumeCollection TimeReceived TimeBloodBLOOD SPECIMEN / UnknownButterfly / Vbapass1603/03/2025 6:01 AM CDT03/03/2025 7:04 AM CDT Narrative Authorizing ProviderResult TypeResult StatusRamy Ricketts MD, PhD CHEMISTRYFinal ResultPerforming OrganizationAddressCity/State/ZIP CodePhone Number [facility] [address] [place] [address], * CT CHEST WO (04/15/2024 12:00 AM CDT)Anatomical RegionLateralityModalityCHEST, THORAX, HEARTComputed Tomography Narrative Authorizing ProviderResult TypeResult StatusCorona Lunsford DOCTFinal Result * SCAN-COLONOSCOPY (12/23/2023 12:00 AM CDT) Narrative Authorizing ProviderResult TypeResult StatusScannerOTHERFinal Result * CT CHEST ABDOMEN PELVIS W (07/10/2023 9:16 AM CDT)Anatomical RegionLaterality ModalityAbdomen, Pelvis, AORTA, LIVER, SPLEEN, CHESTComputed Tomography Specimen (Source)Anatomical Location / LateralityCollection Method / Volume Collection TimeReceived Time07/12/2023 2:36 PM CDT Narrative 07/12/2023 2:36 PM CDT For Patients: As a result of the Cures Act, medical imaging exams and procedure reports are released immediately into your electronic medical record. You may view this report before your referring provider. If you have questions, please contact your health care provider. Indication: Unintended weight loss Technique: Postcontrast CT chest, abdomen and pelvis. 100 cc Omnipaque 350 intravenous contrast. Please note that all CT scans at this facility use dose modulation, iterative reconstruction, and/or weight-based dosing when appropriate to reduce radiation dose to as low as reasonably achievable. Comparison: None Findings: In the chest, emphysematous changes are present. No pleural effusion or pulmonary edema. No pneumothorax. Lobular nodular density is present within the right lung apex measuring 8.5 millimeters. Adjacent pleural thickening noted at the posterior lateral aspect of the right apex. Asymmetric gynecomastia left breast. Upper limits of normal mediastinal and right hilar lymph nodes measuring up to 1 cm. No destructive osseous lesion. No fracture. In the abdomen/pelvis, no suspicious intrahepatic mass. Gallbladder normal. No biliary duct dilation. Spleen is within normal limits. Normal pancreas. Adrenal glands normal. No solid renal mass. Atherosclerotic changes. The aorta is ectatic with a 2.9 cm diameter along with ulcerated plaque formation, series 12, image 82. The bladder wall is thickened. The prostate is heterogeneous. Sigmoid diverticulosis. No diverticulitis. No bowel obstruction. No free air, free fluid or abscess. No abdominalwall hernia. No intra-abdominal or intrapelvic adenopathy. Degenerative joint disease of both hips. Impression: Suspicious a 0.5 millimeter nodule within the right lung apex. This appears to be within the pulmonary parenchyma although there is some connection to the adjacent thickened pleura. CT-PET recommended for further evaluation. Upper limits of normal mediastinal and right hilar lymph nodes measuring up to 1 cm. Asymmetric gynecomastia beneath the left nipple. Recommend clinical correlation. Diagnostic mammography suggested. Ectatic abdominal aorta with ulcerating plaque formation, see series 12, image 82. Prostate heterogeneity. Diffuse bladder wall thickening. Correlate with obstructive bladder symptoms. No hydronephrosis. Sigmoid diverticulosis without diverticulitis or bowel obstruction. Please note that all CT scans at this facility use dose modulation, iterative reconstruction, and/or weight-based dosing when appropriate to reduce radiation dose to as low as reasonably achievable. Dictated by Cliff Tai MD @ Jul 12 2023 ??2:36PM (Electronically Signed) ?? Procedure Note Cliff Tai MD - 07/12/2023 For Patients: As a result of the Cures Act, medical imagingexams and procedure reports are released immediately into your electronicmedical record. You may view this report before your referring provider.If you have questions, please contact your health care provider. Indication: Unintended weight loss Technique: Postcontrast CT chest, abdomen and pelvis. 100 cc Omnipaque 350intravenous contrast. Please note that all CT scans at this facility use dose modulation,iterative reconstruction, and/or weight-based dosing when appropriate toreduce radiation dose to as low as reasonably achievable. Comparison: None Findings: In the chest, emphysematous changes are present. No pleural effusion orpulmonary edema. No pneumothorax. Lobular nodular density is presentwithin the right lung apex measuring 8.5 millimeters. Adjacent pleuralthickening noted at the posterior lateral aspect of the right apex.Asymmetric gynecomastia left breast. Upper limits of normal mediastinaland right hilar lymph nodes measuring up to 1 cm. No destructive osseouslesion. No fracture. In the abdomen/pelvis, no suspicious intrahepatic mass. Gallbladdernormal. No biliary duct dilation. Spleen is within normal limits. Normalpancreas. Adrenal glands normal. No solid renal mass. Atheroscleroticchanges. The aorta is ectatic with a 2.9 cm diameter along with ulceratedplaque formation, series 12, image 82. The bladder wall is thickened. Theprostate is heterogeneous. Sigmoid diverticulosis. No diverticulitis. Nobowel obstruction. No free air, free fluid or abscess. No abdominal wallhernia. No intra-abdominal or intrapelvic adenopathy. Degenerative jointdisease of both hips. Impression: Suspicious a 0.5 millimeter nodule within the right lung apex. Thisappears to be within the pulmonary parenchyma although there is someconnection to the adjacent thickened pleura. CT-PET recommended forfurther evaluation. Upper limits of normal mediastinal and right hilar lymph nodes measuringup to 1 cm. Asymmetric gynecomastia beneath the left nipple. Recommend clinicalcorrelation. Diagnostic mammography suggested. Ectatic abdominal aorta with ulcerating plaque formation, see series 12,image 82. Prostate heterogeneity. Diffuse bladder wall thickening. Correlate with obstructive bladder symptoms. No hydronephrosis. Sigmoid diverticulosis without diverticulitis or bowel obstruction. Please note that all CT scans at this facility use dose modulation,iterative reconstruction, and/or weight-based dosing when appropriate toreduce radiation dose to as low as reasonably achievable. Dictated by Cliff Tai MD @ Jul 12 2023 2:36PM (Electronically Signed) Authorizing ProviderResult TypeResult StatusCarly N Thiner NPCTFinal Result from Last 3 Months or Most Recently Relevant to Health Maintenance Insurance * Guarantor: Eric Gaona Jr.Account TypeRelation to PatientDate of PhoneBilling AddressPersonal/[phone] [place] [address] * Guarantor: Eric Gaona Jr.Account TypeRelation to PatientDate of PhoneBilling AddressPersonal/[phone] [place] [address] [place] [id number] Advance Directives * Full Code (Latest Code Status on File) Date ActivatedDate InactivatedComments03/02/2025 7:09 PM03/03/2025 5:03 PMQuestion AnswerCommentsCode Status Discussion:* Reviewed Preferences * Full Code Date ActivatedDate InactivatedComments10/19/2009 8:37 AM10/20/2009 2:12 AM Care Teams Team MemberRelationshipSpecialtyStart DateEnd Date Rubina Laughlin PA [address] [place] [address] PCP - GeneralPhysician Ysloudwyn87/10/23
[2025-09-21 11:01] VITALS: BP 124/68; PULSE 96; RESP 22; TEMP 36.3; O2SAT 94; BMI 24.2
--- NOTE | 2025-09-21 11:45 | ED.GENADULT ---
HPI - General Adult General Chief complaint: Shortness of Breath/Dyspnea Stated complaint: Shortness of breath Time Seen by Provider: 09/21/25 11:38 History of Present Illness HPI narrative: This 70-year-old male comes in stating that he did not sleep well last night and felt short of breath with some mild chest tightness this morning. He is a smoker and has COPD. He does use albuterol generally twice daily and is on a preventative medicine. He woke this morning feeling more short of breath and sensed some gurgling in his breathing at times. He states that he is feeling better now. He does arrive here with normal vital signs and oximetry at 94% on room air. Related Data Home Medications ?Medication ?Instructions ?Recorded ?Confirmed albuterol sulfate 90 mcg/actuation 2 puff inhalation Q4H PRN wheezing 09/21/25 09/21/25 aerosol inhaler clopidogrel 75 mg tablet 75 mg PO DAILY 09/21/25 09/21/25 ergocalciferol (vitamin D2) 1,250 1,250 mcg PO 09/21/25 mcg (50,000 unit) capsule escitalopram oxalate 10 mg tablet 10 mg PO DAILY 09/21/25 09/21/25 fluticasone 250 mcg-salmeterol 50 1 ea inhalation BID 09/21/25 09/21/25 mcg/dose blistr powdr for inhalation fluticasone propionate 50 2 spray intranasal DAILY 09/21/25 09/21/25 mcg/actuation nasal spray,suspension lorazepam 0.5 mg tablet 0.5 mg PO Q6H PRN anxiety 09/21/25 09/21/25 rosuvastatin 10 mg tablet 10 mg PO DAILY 09/21/25 09/21/25 rosuvastatin 20 mg tablet 20 mg PO DAILY 09/21/25 09/21/25 Allergies Allergy/AdvReac Type Severity Reaction Status Date / Time Penicillins Allergy Verified 09/21/25 11:07 Review of Systems Status of ROS: Reports: 10 or more systems reviewed and unremarkable except as noted in History and below Narrative: Constitutional: No fevers, no weight gain or loss. Eyes: No discharge. No vision changes. HENT: No congestion, no sore throat, no ear pain. Cardiovascular: No chest pain, no palpitations. Respiratory: Cough and shortness of breath as described above. Gastrointestinal: No abdominal pain, no vomiting, no diarrhea. Genitourinary: No dysuria, no hematuria. Musculoskeletal: Normal range of motion. Skin: No rashes, no pruritis. Neurological: No dizziness, weakness, sensory change, speech change. Endo/Heme/Allergies: No bruising or bleeding. No polydipsia. Pysch: no suicidality, no anxiety, no insomnia. All other systems reviewed and are negative. Exam Narrative: Exam Narrative: Constitutional: Well-developed, well-nourished, no acute distress. HEENT: Normocephalic, atraumatic. Neck: Normal range of motion. Nontender. Supple. Heart: Regular. No murmurs. Normal rate. Intact distal pulses. Lungs: Clear to auscultation. No chest discomfort. No wheezes, rhonchi, or rales. Abdomen: Normal bowel sounds. Nontender. No rebound tenderness. Genitalia: Deferred. Back: No midline tenderness. Normal range of motion. Extremities: Normal range of motion. No injury. Skin: Intact. No rash. Warm. No erythema or pallor. Neurologic: No altered sensation. No weakness. Alert and oriented. Psychiatric: No suicidality. No anxiety or depression. No insomnia. Nursing notes and vitals signs are reviewed. Const: Vital Signs, click to edit/add: Vital Signs - 24 hr 09/21/25 11:01 Temperature 97.3 F L Pulse Rate [Pulse Oximeter] 96 Respiratory Rate 22 Blood Pressure [Ri ght Upper Arm] 124/68 Pulse Oximetry 94 Oxygen Delivery Me thod Room Air Course Vital Signs Vital signs: Initial Vital Signs Temperature 97.3 F L 09/21/25 11:01 Temperature Source Temporal Artery Scan 09/21/25 11:01 Pulse Rate 96 09/21/25 11:01 Respiratory Rate 22 09/21/25 11:01 Blood Pressure 124/68 09/21/25 11:01 Blood Pressure Mean 86 09/21/25 11:01 Blood Pressure Position Sitting 09/21/25 11:01 Pulse Oximetry 94 09/21/25 11:01 Oxygen Delivery Method Room Air 09/21/25 11:01 Vital Signs Temperature 97.3 F L 09/21/25 11:01 Pulse Rate 96 09/21/25 11:01 Respiratory Rate 22 09/21/25 11:01 Blood Pressure 124/68 09/21/25 11:01 Pulse Oximetry 94 09/21/25 11:01 Oxygen Delivery Method Room Air 09/21/25 11:01 Temperature 97.3 F L 09/21/25 11:01 Pulse Rate 96 09/21/25 11:01 Respiratory Rate 22 09/21/25 11:01 Blood Pressure 124/68 09/21/25 11:01 Pulse Oximetry 94 09/21/25 11:01 Oxygen Delivery Method Room Air 09/21/25 11:01 Medications Administered Medications: Discontinued Medications Generic Name Dose Route Start Last Admin Trade Name Urbano PRN Reason Stop Dose Admin Dexamethasone 10 mg 09/21/25 12:00 09/21/25 12:03 Dexamethasone 10 Mg/Ml Pf PO 09/21/25 12:01 10 mg ONCE ONE Administration Medical Decision Making MDM Narrative Medical decision making narrative: This patient has COPD and continues to smoke. He comes in with report of increased congestion and shortness of breath. He does not have any fevers. He does use albuterol and has a preventative medicine at home. He states that he is feeling better now. His vital signs are in normal range. Nasal pharyngeal swab returns negative for viruses tested. The patient did receive an oral dose of dexamethasone 10 mg. He states that he is feeling better. I did discuss the role of a chest x-ray but gave reassurance is with his normal vital signs and lung auscultation. Lab Data Labs: Lab Results 09/21/25 Range/Units 11:10 SARS-CoV-2 (PCR) Negative SARS-CoV-2 (Negative) Influenza Type A (PCR) Negative PCR FLU A (Negative) Influenza Type B (PCR) Negative PCR FLU B (Negative) RSV (PCR) Negative PCR RSV (Negative) Discharge Plan Discharge Clinical Impression: Acute upper respiratory infection Patient Disposition: Home, Self-Care Condition: Improved Additional Instructions: Continue current plans. Smoking cessation is advised. Follow up with MD return if symptoms are worsening. Prescriptions: No Action fluticasone propion-salmeterol 250-50 mcg/dose blister with device 1 ea INHALATION BID clopidogrel 75 mg tablet 75 mg PO DAILY lorazepam 0.5 mg tablet 0.5 mg PO Q6H PRN (Reason: anxiety) ergocalciferol (vitamin D2) 1,250 mcg (50,000 unit) capsule 1,250 mcg PO albuterol sulfate 90 mcg/actuation HFA aerosol inhaler 2 puff INHALATION Q4H PRN (Reason: wheezing) fluticasone propionate 50 mcg/actuation spray,suspension 2 spray INTRANASAL DAILY escitalopram oxalate 10 mg tablet 10 mg PO DAILY rosuvastatin 10 mg tablet 10 mg PO DAILY Patient Comments: increased dose rosuvastatin 20 mg tablet 20 mg PO DAILY Follow Up/Referrals: Rubina Laughlin PA-C [Primary Care Provider, Family Practice] Stand Alone Forms: [facility] Inst[facility]
[2025-09-21 11:58] LABS: PCR FLU A Negative PCR FLU A (Negative); PCR FLU B Negative PCR FLU B (Negative); PCR RSV Negative PCR RSV (Negative); SARS PCR* Negative SARS-CoV-2 (Negative)
[2025-09-21] MEDS: DEXAMETHASONE 10 MG/ML PF PO (12:03)
== END 2025-09-21 12:20 | disposition home or self-care (01) ==
PROVIDERS: Emergency Provider Emergency Medicine Emergency Medical Services; PCP Physician Assistant
DX: J06.9 Acute upper respiratory infection, unspecified (principal); J44.9 Chronic obstructive pulmonary disease, unspecified; F17.210 Nicotine dependence, cigarettes, uncomplicated; Z79.51 Long term (current) use of inhaled steroids
CPT/HCPCS: 87631; 99283; 99284; J1100